=== PATIENT | female | born 1945 | race Caucasian/White ===

== ENCOUNTER 2016-11-12 17:48 | Inpatient (IN) | payer MEDICARE ==
[2016-11-12] MEDS ORDERED: ceFAZolin 1,000 MG in DEXTROSE/WATER 1 50ML.BAG IVPB STA (18:33)
[2016-11-12] MEDS ORDERED: SODIUM CHLORIDE 0.9% 1,000 ML IV ONE (18:35)
[2016-11-12 18:57] VITALS: RESP 16
[2016-11-12 19:08] LABS: Basophils # (A) 0.1 k/uL (0-0.2); Basophils % (A) 1 %; CH 29.6; CHCM 35.1; Eosinophils # (A) 0.2 k/uL (0-0.7); Eosinophils % (A) 3 %; HCT 36.8 % (34.0-46.0); HDW 3.13; HGB 13.4 gm/dL (11.4-16.0); Luc # (Auto) 0.26; Luc % (Auto) 4; Lymphocytes % (A) 27 %; MCH 30.8 pg (25.0-35.0); MCHC 36.4 g/dL (31.0-37.0); MCV 84.8 fL (80.0-100.0); Mean Platelet Volume 6.8; Monocytes # (A) 0.5 k/uL (0-1.0); Monocytes % (A) 7 %; Neutrophils # (A) 4.4 k/uL (1.3-7.7); Neutrophils % (A) 59 %; RBC 4.34 m/uL (3.80-5.40); RDW 13.7 % (11.5-15.5); WBC 7.3 k/uL (3.8-10.6); WBC (Perox) 7.49
[2016-11-12 19:20] LABS: ALT 39 U/L (9-52); AST 26 U/L (14-36); Alkaline Phosphatase 61 U/L (38-126); Anion Gap 14 mmol/L; Blood Urea Nitrogen 21 mg/dL (7-17); Calcium 10.1 mg/dL (8.4-10.2); Carbon Dioxide 28 mmol/L (22-30); Chloride 99 mmol/L (98-107); Glucose 116 mg/dL (74-99); Non-African American GFR(MDRD) >60 (>60 ml/min/1.73 sqM); Potassium 3.2 mmol/L (3.5-5.1); Sodium 141 mmol/L (137-145); Total Protein 7.7 g/dL (6.3-8.2)
[2016-11-12] MEDS ORDERED: KETOROLAC 30 MG/ML 1 ML VIAL IVP PRN (20:33)
[2016-11-12] MEDS ORDERED: ALPRAZolam 0.25 MG TAB PO PRN (20:33)
[2016-11-12] MEDS ORDERED: oxyCODONE-APAP 5-325MG 1 EACH TAB PO PRN (20:33)
[2016-11-12] MEDS ORDERED: NALOXONE 0.4 MG/ML 1 ML VIAL IV PRN (20:33)
[2016-11-12] MEDS ORDERED: ACETAMINOPHEN TAB 325 MG TAB PO PRN (20:33)
[2016-11-12] MEDS ORDERED: ONDANSETRON 4 MG/2 ML VIAL IVP PRN (20:33)
--- NOTE | 2016-11-12 20:33 | ED ---
Skin/Abscess/FB HPI - General Source: patient, RN notes reviewed, old records reviewed Mode of arrival: ambulatory Limitations: no limitations <Betty Hayes - Last Filed: 11/12/16 20:27> <Garrett Samuel - Last Filed: 11/12/16 20:54> - General Chief complaint: Skin/Abscess/Foreign Body Stated complaint: leg infection Time Seen by Provider: 11/12/16 18:16 - History of Present Illness Initial comments: This is a pleasant 71-year-old female presenting to the emergency Department chief complaint of right foot mosquito bite infected. Patient is a retired emergency room nurse. Patient reports that she noticed that it was irritating over her sandals. Patient states that over the past day she's noticed some streaking going up her leg. She also has some swelling there. She also reports that he sprained her ankle a few days ago. She denies any difficulty with ambulating. Patient denies any fever or chills. Patient states that she has full range of motion. Sensation in her distal extremity. She denies any posterior calf tenderness or thigh tenderness. Patient states that she did take some oxygen amoxicillin she had left over from a dental prophylaxis yesterday into today. Patient denies any recent fever, chills, shortness of breath, chest pain, back pain, abdominal pain, nausea vomiting, numbness or tingling, dysuria or hematuria, constipation or diarrhea, headaches or visual changes, or any other current symptoms (Betty Hayes) - Related Data Home Medications Medication Instructions Recorded Confirmed Aspirin EC [Ecotrin Low Dose] 81 mg PO DAILY 05/21/15 11/12/16 Atenolol/Chlorthalidone 1 tab PO QAM 05/21/15 11/12/16 [Atenolol-Chlorthalidone 50-25] Zolpidem [Ambien] 5 mg PO HS PRN 05/21/15 11/12/16 Amoxicillin 500 mg PO ONCE 11/12/16 11/12/16 Allergies Allergy/AdvReac Type Severity Reaction Status Date / Time sood Allergy Anaphylaxis Verified 11/12/16 18:24 morphine Allergy Unknown Verified 11/12/16 18:24 Review of Systems ROS Other: All systems not noted in ROS Statement are negative. <Betty Hayes - Last Filed: 11/12/16 20:27> ROS Other: All systems not noted in ROS Statement are negative. <Garrett Samuel - Last Filed: 11/12/16 20:54> ROS Statement: Those systems with pertinent positive or pertinent negative responses have been documented in the HPI. Past Medical History Past Medical History: Hypertension, Osteoarthritis (OA) Additional Past Medical History / Comment(s): OCCASIONAL VERTIGO., BACK PAIN. History of Any Multi-Drug Resistant Organisms: None Reported Past Surgical History: Hysterectomy, Joint Replacement, Orthopedic Surgery, Tonsillectomy Additional Past Surgical History / Comment(s): RIGHT ROTATOR CUFF REPAIR. Left hip Past Anesthesia/Blood Transfusion Reactions: Motion Sickness Past Psychological History: No Psychological Hx Reported Smoking Status: Former smoker Past Alcohol Use History: Occasional Past Drug Use History: None Reported - Past Family History Mother Family Medical History: Coronary Artery Disease (CAD), Diabetes Mellitus, Hypertension, Myocardial Infarction ([place]) Additional Family Medical History / Comment(s): Mother of a [place] after her leg was amputated when she was 72 yrs old. Father Family Medical History: Cancer Additional Family Medical History / Comment(s): LUNG CA Brother(s) Family Medical History: Cancer Additional Family Medical History / Comment(s): MELANOMA <Betty Hayes - Last Filed: 11/12/16 20:27> General Exam Limitations: no limitations General appearance: alert, in no apparent distress Head exam: Present: atraumatic, normocephalic, normal inspection Eye exam: Present: normal appearance, PERRL, EOMI. Absent: scleral icterus, conjunctival injection, periorbital swelling ENT exam: Present: normal exam, normal oropharynx, mucous membranes moist Neck exam: Present: normal inspection. Absent: tenderness, meningismus, lymphadenopathy Respiratory exam: Present: normal lung sounds bilaterally. Absent: respiratory distress, wheezes, rales, rhonchi, stridor Cardiovascular Exam: Present: regular rate, normal rhythm, normal heart sounds. Absent: systolic murmur, diastolic murmur, rubs, gallop, clicks GI/Abdominal exam: Present: soft, normal bowel sounds. Absent: distended, tenderness, guarding, rebound, rigid Extremities exam: Present: normal inspection, full ROM, normal capillary refill. Absent: tenderness, pedal edema, joint swelling, calf tenderness, other (Patient is evidence of 2 mosquito bites over the dorsum of the right foot. There is evidence of some swelling in lymphangitic streaking extending up from the medial ankle at the medial upper leg into the upper thigh. This area was marked with pen. ) Back exam: Present: normal inspection Neurological exam: Present: alert, oriented X3, CN II-XII intact Psychiatric exam: Present: normal affect, normal mood Skin exam: Present: warm, dry, intact, normal color. Absent: rash <Betty Hayes - Last Filed: 11/12/16 20:27> <Garrett Samuel - Last Filed: 11/12/16 20:54> - General Exam Comments Initial Comments: Is a 71-year-old female. No acute distress. (Betty Hayes) Medical Decision Making - Lab Data Result diagrams: 11/12/16 18:50 11/12/16 18:50 <Betty Hayes - Last Filed: 11/12/16 20:27> - Lab Data Result diagrams: 11/12/16 18:50 11/12/16 18:50 <Garrett Samuel - Last Filed: 11/12/16 20:54> - Medical Decision Making This is a pleasant 71-year-old female presenting to the emergency Department chief complaint of right foot mosquito bite infected. Patient reports she is generally healthy and well otherwise. Patient is a retired emergency room nurse. Patient reports that she noticed that it was irritating over her sandals. Patient states that over the past day she's noticed some streaking going up her leg. She also has some swelling there. Patient did have a wound culture obtained. Blood cultures and IV fluids were started. Patient was started on Kefzol. Discussed the case with Dr. Samuel. Given the significant streaking all the way up the thigh, patient will be admitted and start her on IV antibiotic. (Betty Hayes) Patient reevaluated by myself, Dr. Samuel. Patient does have 2 lesions right dorsal foot with surrounding erythema. There is lymphangitic streaking to the mid thigh. Case discussed with Dr. Ochoa, who will admit for Dr. Cantor. Patient does not meet sepsis criteria at this time. (Garrett Samule) - Lab Data Lab Results 11/12/16 11/12/16 Range/Units 18:50 18:50 WBC 7.3 (3.8-10.6) k/uL RBC 4.34 (3.80-5.40) m/uL Hgb 13.4 (11.4-16.0) gm/dL Hct 36.8 (34.0-46.0) % MCV 84.8 (80.0-100.0) fL MCH 30.8 (25.0-35.0) pg MCHC 36.4 (31.0-37.0) g/dL RDW 13.7 (11.5-15.5) % Plt Count 220 (150-450) k/uL Neutrophils % 59 % Lymphocytes % 27 % Monocytes % 7 % Eosinophils % 3 % Basophils % 1 % Neutrophils # 4.4 (1.3-7.7) k/uL Lymphocytes # 2.0 (1.0-4.8) k/uL Monocytes # 0.5 (0-1.0) k/uL Eosinophils # 0.2 (0-0.7) k/uL Basophils # 0.1 (0-0.2) k/uL Sodium 141 (137-145) mmol/L Potassium 3.2 L (3.5-5.1) mmol/L Chloride 99 (98-107) mmol/L Carbon Dioxide 28 (22-30) mmol/L Anion Gap 14 mmol/L BUN 21 H (7-17) mg/dL Creatinine 0.81 (0.52-1.04) mg/dL Est GFR (MDRD) Af Amer >60 (>60 ml/min/1.73 sqM) Est GFR (MDRD) Non-Af >60 (>60 ml/min/1.73 sqM) Glucose 116 H (74-99) mg/dL Calcium 10.1 (8.4-10.2) mg/dL Total Bilirubin 1.0 (0.2-1.3) mg/dL AST 26 (14-36) U/L ALT 39 (9-52) U/L Alkaline Phosphatase 61 (38-126) U/L Total Protein 7.7 (6.3-8.2) g/dL Albumin 4.7 (3.5-5.0) g/dL Disposition Time of Disposition: 20:33 <Betty Hayes - Last Filed: 11/12/16 20:27> <Garrett Samuel - Last Filed: 06/30/17 20:54> Clinical Impression: Cellulitis of right foot, Acute lymphangitis Disposition: ADMITTED IP TO THIS HOSP Condition: Stable Referrals: Manuel Arriaza MD [Primary Care Provider] - 1-2 days
[2016-11-12 22:19] VITALS: PULSE 76
[2016-11-12 22:41] VITALS: BMI 28.8
[2016-11-13] MEDS: ceFAZolin 1,000 MG in DEXTROSE/WATER 1 50ML.BAG IVPB SCH ×2 (01:42→08:16)
[2016-11-13] MEDS: SODIUM CHLORIDE 0.9% 1,000 ML IV SCH ×2 (01:43→05:50)
[2016-11-13] MEDS ORDERED: ATENOLOL 50 MG TAB PO SCH (09:00)
[2016-11-13] MEDS ORDERED: CHLORTHALIDONE 25 MG TAB PO SCH (09:00)
[2016-11-13] MEDS ORDERED: NON-FORMULARY DRUG (Atenolol/Chlorthalidone [Atenolol-Chlorthalidone 50-25] 1 TAB) PO SCH (09:00)
[2016-11-13] MEDS ORDERED: ASPIRIN 81 MG CHEW PO SCH (09:00)
[2016-11-13] MEDS ORDERED: ENOXAPARIN 40 MG/0.4 ML SYRINGE SQ SCH (09:00)
[2016-11-13 09:12] VITALS: BP 132/66; TEMP 97.6
[2016-11-13] MEDS ORDERED: POTASSIUM CHLORIDE ER 20 MEQ TAB.ER PO STA (10:38)
--- NOTE | 2016-11-13 10:51 | P.DS ---
Providers Date of admission: 11/12/16 20:54 Attending physician: Jordy Ochoa Primary care physician: Manuel jayden [facility] Course: Physical history of present illness Patient Condition at Discharge: Stable Plan - Discharge Summary New Discharge Prescriptions: New Cephalexin [Keflex] 500 mg PO Q8HR #21 cap Discontinued Amoxicillin 500 mg PO ONCE No Action Atenolol/Chlorthalidone [Atenolol-Chlorthalidone 50-25] 1 tab PO QAM Zolpidem [Ambien] 5 mg PO HS PRN PRN Reason: Insomnia Aspirin EC [Ecotrin Low Dose] 81 mg PO DAILY Discharge Medication List Aspirin EC [Ecotrin Low Dose] 81 mg PO DAILY 05/21/15 [History] Atenolol/Chlorthalidone [Atenolol-Chlorthalidone 50-25] 1 tab PO QAM 05/21/15 [ History] Zolpidem [Ambien] 5 mg PO HS PRN 05/21/15 [History] Cephalexin [Keflex] 500 mg PO Q8HR #21 cap 11/13/16 [Rx] Follow up Appointment(s)/Referral(s): Manuel Arriaza MD [Primary Care Provider] - 3 Days (Patient to call Dr. Arriaza' s office Tuesday to schedule follow up appointment. The office is closed at time of discharge.) Patient Instructions/Handouts: Cephalexin (By mouth), Cellulitis (DC), Lymphangitis (DC) Discharge Disposition: HOME SELF-CARE
--- NOTE | 2016-11-13 11:01 | P.HPIM ---
History of Present Illness H&P Date: 11/13/16 This is a pleasant 71-year-old female presenting to the emergency Department chief complaint of right redness, burning sensation is started on patient had mosquito bite in the past which led to skin breakdown after rubbing her footing is a show leading to cellulitis. Patient took 4 doses of amoxicillin she had at home without any significant impr She denies any difficulty with ambulating. Patient denies any fever or chills. Patient states that she has full range of motion. Sensation in her distal extremity. She denies any posterior calf tenderness or thigh tenderness. Patient denies any recent fever, chills, shortness of breath, chest pain, back pain, abdominal pain, nausea vomiting, numbness or tingling, dysuria or hematuria, constipation or diarrhea, headaches or visual changes, or any other current symptoms Review of Systems REVIEW OF SYSTEMS: CONSTITUTIONAL: No fever, no malaise, no fatigue. HEENT: No recent visual problems or hearing problems. Denied any sore throat. CARDIOVASCULAR: No chest pain, orthopnea, PND, no palpitations, no syncope. PULMONARY: No shortness of breath, no cough, no hemoptysis. GASTROINTESTINAL: No diarrhea, no nausea, no vomiting, no abdominal pain. Normoactive bowel sounds. NEUROLOGICAL: No headaches, no weakness, no numbness. HEMATOLOGICAL: Denies any bleeding or petechiae. GENITOURINARY: Denies any burning micturition, frequency, or urgency. MUSCULOSKELETAL/RHEUMATOLOGICAL: Denies any joint pain, swelling, or any muscle pain. ENDOCRINE: Denies any polyuria or polydipsia. The rest of the 14-point review of systems is negative. Past Medical History Past Medical History: Hypertension, Osteoarthritis (OA) Additional Past Medical History / Comment(s): OCCASIONAL VERTIGO., BACK PAIN. History of Any Multi-Drug Resistant Organisms: None Reported Past Surgical History: Hysterectomy, Joint Replacement, Orthopedic Surgery, Tonsillectomy Additional Past Surgical History / Comment(s): RIGHT ROTATOR CUFF REPAIR. Left hip Past Anesthesia/Blood Transfusion Reactions: No Reported Reaction Past Psychological History: No Psychological Hx Reported Additional Psychological History / Comment(s): PT resides in her home. She recently had a nephew and his son move in upstairs in her home. She is independent. She has a cane and access to 2 walkers for use after surgery. She drives. Smoking Status: Former smoker Past Alcohol Use History: Occasional Past Drug Use History: None Reported - Past Family History Mother Family Medical History: Coronary Artery Disease (CAD), Diabetes Mellitus, Hypertension, Myocardial Infarction ([place]) Additional Family Medical History / Comment(s): Mother of a [place] after her leg was amputated when she was 71 yrs old. Father Family Medical History: Cancer Additional Family Medical History / Comment(s): LUNG CA Brother(s) Family Medical History: Cancer Additional Family Medical History / Comment(s): MELANOMA Medications and Allergies Home Medications Medication Instructions Recorded Confirmed Type Aspirin EC [Ecotrin Low Dose] 81 mg PO DAILY 05/21/15 11/12/16 History Atenolol/Chlorthalidone 1 tab PO QAM 05/21/15 11/12/16 History [Atenolol-Chlorthalidone 50-25] Zolpidem [Ambien] 5 mg PO HS PRN 05/21/15 11/12/16 History Allergies Allergy/AdvReac Type Severity Reaction Status Date / Time sood Allergy Anaphylaxis Verified 11/12/16 18:24 morphine Allergy Unknown Verified 11/12/16 18:24 Physical Exam Vitals: Vital Signs Temp Pulse Pulse Resp BP BP Pulse Ox 11/13/16 08:00 76 16 11/13/16 07:00 97.6 F 55 L 16 132/66 96 11/12/16 22:18 98.1 F 76 16 148/75 97 11/12/16 21:26 98.7 F 66 16 121/69 99 11/12/16 18:54 99.0 F 64 16 155/74 99 11/12/16 17:50 98.1 F 80 20 149/84 98 Intake and Output 11/12/16 11/13/16 11/13/16 22:59 06:59 14:59 Intake Total 400 Balance 400 Intake: Oral 400 Other: Voiding Method Toilet Toilet # Voids 1 1 Weight 76.204 kg PHYSICAL EXAMINATION: GENERAL: The patient is alert and oriented x3, not in any acute distress. Well developed, well nourished. HEENT: Pupils are round and equally reacting to light. EOMI. No scleral icterus. No conjunctival pallor. Normocephalic, atraumatic. No pharyngeal erythema. No thyromegaly. CARDIOVASCULAR: S1 and S2 present. No murmurs, rubs, or gallops. PULMONARY: Chest is clear to auscultation, no wheezing or crackles. ABDOMEN: Soft, nontender, nondistended, normoactive bowel sounds. No palpable organomegaly. MUSCULOSKELETAL: No joint swelling or deformity. EXTREMITIES: No cyanosis, clubbing, or patient has extensive edema of the right lower limb extending from right foot up to a few centimeters below the groin area with the lymphangitic streaking and lymphadenopathy.. NEUROLOGICAL: Gross neurological examination did not reveal any focal deficits. SKIN: No rashes. Results CBC & Chem 7: 11/12/16 18:50 11/12/16 18:50 Labs: Abnormal Lab Results - Last 24 Hours (Table) 11/12/16 Range/Units 18:50 Potassium 3.2 L (3.5-5.1) mmol/L BUN 21 H (7-17) mg/dL Glucose 116 H (74-99) mg/dL Microbiology - Last 24 Hours (Table) 11/12/16 19:05 Gram Stain - Preliminary Foot - Left Wound Culture - Preliminary Thrombosis Risk Factor Assmnt - Choose All That Apply Any of the Below Risk Factors Present?: No Each Risk Factor Represents 2 Points: Age 61-74 years Other congenital or acquired thrombophilia - If yes, enter type in comment: No Thrombosis Risk Factor Assessment Total Risk Factor Score: 2 Thrombosis Risk Factor Assessment Level: Low Risk Assessment and Plan Plan: Assessment and plan #1 Is let us of the right lower extremity: Significant improvement with ceftezolin and and probably streptococcal because of the lymphangitic streaking , patient will be discharged on Keflex for 7 days. #2 hypertension fairly controlled blood pressures: Patient will continue her home medications #3 osteoarthritis. Patient will be discharged today to follow up with Dr. Manuel fernández in about 3- 7 days.
== END 2016-11-13 13:00 | disposition home or self-care (01) | DRG 603 ==
LOC: EC 17:48 → 5MS5E 20:54
PROVIDERS: ADMIT Internal Medicine; ATTEND Internal Medicine
DX: L03.115 Cellulitis of right lower limb (principal); I10 Essential (primary) hypertension; M19.90 Unspecified osteoarthritis, unspecified site; M54.9 Dorsalgia, unspecified; Z91.018 Allergy to other foods; Z83.3 Family history of diabetes mellitus; Z87.891 Personal history of nicotine dependence; Z88.5 Allergy status to narcotic agent; Z82.49 Family history of ischemic heart disease and other diseases of the circulatory system; Z80.1 Family history of malignant neoplasm of trachea, bronchus and lung; Z80.8 Family history of malignant neoplasm of other organs or systems; Z96.60 Presence of unspecified orthopedic joint implant; Z90.710 Acquired absence of both cervix and uterus; Z79.82 Long term (current) use of aspirin; Z79.899 Other long term (current) drug therapy; W57.XXXA Bitten or stung by nonvenomous insect and other nonvenomous arthropods, initial encounter
CPT/HCPCS: 36415; 80053; 85025; 87040; 87070; 87077; 87186; 87205; 96361; 96374; 99285

== ENCOUNTER → 2017-03-23 | Outpatient (CLI) | payer MEDICARE ==
--- NOTE | 2017-03-25 10:44 | MM ---
Reason for exam: screening (asymptomatic). Last mammogram was performed 1 year ago. History: Patient is postmenopausal and is nulliparous. Family history of breast cancer in paternal grandmother at age 60. Benign right mammotome panel of the right breast, April 15, 2010. Benign left mammotome panel of the left breast, January 09, 2007. Benign left mammotome panel of the left breast, January 09, 2007. Took estrogen for 9 years beginning at age 48. Physical Findings: A clinical breast exam by your physician is recommended on an annual basis and results should be correlated with mammographic findings. MG 3D Screening Mammo W/Cad Bilateral CC and MLO view(s) were taken. Prior study comparison: March 22, 2016, bilateral MG 3d screening mammo w/cad. March 21, 2015, bilateral MG screening mammo w CAD. The breast tissue is heterogeneously dense. This may lower the sensitivity of mammography. Previous mammotome biopsy in the right breast in the left breast x 2. No significant changes when compared with prior studies. ASSESSMENT: Negative, BI-RAD 1 RECOMMENDATION: Routine screening mammogram of both breasts in 1 year.
== END | disposition home or self-care (01) ==
LOC: RADMAMWWP 09:52
PROVIDERS: ATTEND Internal Medicine
DX: Z12.31 Encounter for screening mammogram for malignant neoplasm of breast (principal)
CPT/HCPCS: 77063; G0202

== ENCOUNTER → 2018-04-05 | Outpatient (CLI) | payer MEDICARE ==
--- NOTE | 2018-04-10 11:57 | MM ---
Reason for exam: screening (asymptomatic). Last mammogram was performed 1 year ago. History: Patient is postmenopausal and is nulliparous. Family history of breast cancer in paternal grandmother at age 60. Benign right mammotome panel of the right breast, April 15, 2010. Benign left mammotome panel of the left breast, January 09, 2007. Benign left mammotome panel of the left breast, January 09, 2007. Took estrogen for 9 years beginning at age 48. Physical Findings: A clinical breast exam by your physician is recommended on an annual basis and results should be correlated with mammographic findings. MG 3D Screening Mammo W/Cad Bilateral CC and MLO view(s) were taken. Prior study comparison: March 23, 2017, bilateral MG 3d screening mammo w/cad. March 22, 2016, bilateral MG 3d screening mammo w/cad. The breast tissue is heterogeneously dense. This may lower the sensitivity of mammography. Previous mammotome biopsy in the right and left breast. No significant changes when compared with prior studies. ASSESSMENT: Benign, BI-RAD 2 RECOMMENDATION: Routine screening mammogram of both breasts in 1 year.
== END | disposition home or self-care (01) ==
LOC: RADMAMWWP 08:57
PROVIDERS: ATTEND Internal Medicine
DX: Z12.31 Encounter for screening mammogram for malignant neoplasm of breast (principal)
CPT/HCPCS: 77063; 77067

== ENCOUNTER 2018-07-04 06:13 | Day surgery (SDC) | payer MEDICARE ==
[2018-06-29 15:52] VITALS: BMI 28.8
[~2018-07-04 06:13] MED LIST: HYDROmorphone 0.5 MG/0.5 ML SYRINGE IVP PRN; LACTATED RINGERS 1,000 ML IV SCH; LIDOCAINE 1% 20 ML VIAL (10MG/ML) FOR IV START INTRADERMA PRN
[2018-07-04] MEDS: CYCLOPENTOLATE 1% OPHTH SOLN 2 ML BTL OP ONE ×3 (06:40→07:04)
[2018-07-04 06:43] VITALS: RESP 16; TEMP 97
[2018-07-04] MEDS: PHENYLEPHRINE 10% OPHTH DROPS 5 ML BTL OP ONE ×3 (06:48→07:07)
[2018-07-04] MEDS: KETOROLAC 0.5% OPHTH DROPS 5 ML BTL OP ONE ×3 (06:51→07:14)
[2018-07-04] MEDS ORDERED: GENTAMICIN/PREDNISOL AC OPHTH OINT 3.5GM OPHTHALMIC ONE (07:00)
[2018-07-04] MEDS ORDERED: TOBRA-DEXAMET 0.3-0.1% OPHTH OINT 3.5 GM TUBE OPHTHALMIC ONE (07:00)
[2018-07-04] MEDS ORDERED: TIMOLOL 0.5% OPHTH DROPS 5 ML BTL OP ONE (07:00)
[2018-07-04] MEDS ORDERED: BUPIVACAINE (PF) 0.75% 5 ML, HYALURONIDASE, HUMAN RECOMB 150 UNIT, LIDOCAINE 2% (PF) 10... MISCELLANE ONE ×3 (07:00)
[2018-07-04] MEDS ORDERED: fentaNYL (PF) 50 MCG/ML 2 ML AMP ONE (07:40)
[2018-07-04] MEDS ORDERED: PROPOFOL 10 MG/ML 20 ML VIAL IV ONE (07:40)
[2018-07-04] MEDS ORDERED: MIDAZOLAM 2 MG/2 ML VIAL ONE (07:40)
[2018-07-04] MEDS ORDERED: HYALURONATE SODIUM INTRAOCULAR 1 EACH SYRINGE (10MG/ML) INTRAOCULA ONE (07:47)
[2018-07-04] MEDS ORDERED: BALANCED SALT IRRIG SOLN COMB2 15 ML IRRIG.SOLN IRRIGATION ONE (07:47)
[2018-07-04] MEDS ORDERED: EPINEPHrine (PF) 0.5 ML in BALANCED SALT IRRIG SOLN COMB2 500 ML IRRIGATION ONE (07:50)
--- NOTE | 2018-07-04 08:27 | P.OP ---
Date of Procedure: 07/04/18 Procedure(s) Performed: PREOPERATIVE DIAGNOSIS: Cataract, right eye. POSTOPERATIVE DIAGNOSIS: Cataract, right eye. OPERATION: Phacoemulsification of cataract, intraocular lens placement, right eye. DESCRIPTION OF PROCEDURE: The patient was taken to the operating room. Intravenous Propofol was given so as to bring about sedation. The following mixture was given for local anesthesia: 5 mL of 2% lidocaine, 5 mL of 0.75% Marcaine, and 1 mL of Wydase. Approximately 4 mL was injected in the retrobulbar space of the surgical eye. Additional 1 mL was then directed to the temporal area of the surgical eye. This was performed to allow adequate neurological block of the facial muscles. The patient was revived. The patient was prepped and draped in the usual sterile manner for the operative eye. A lid speculum was put into position. The conjunctiva was resected back from the limbus in the 12 o'clock position. Bleeding was controlled with electrocautery. A #69 blade was then used and a half-thickness scleral incision approximately 1-mm posterior to the limbus was made on bare sclera. This was shelved in the clear cornea using a crescent knife. Next a 15-degree blade was used to make a stab incision at the 3 o'clock position at the corneolimbal interface. A keratome blade was then used and the superior wound was extended into the anterior chamber. Viscoelastic was injected into the anterior chamber to maintain its form. A cystotome was used and a continuous anterior capsulotomy was made. Hydrodissection of the lens cortex using a blunt cannula and BSS was performed. A phaco probe was then introduced and a groove extending from 12 to 6 o'clock in the lens was created. A Mike wand was used through the stab incision and used to perform a divide and conquer dismantling of the cataract. An irrigation aspiration probe was utilized and any residual cortex was removed from the eye. Again, viscoelastic was injected into the anterior chamber. An Constantino posterior chamber lens implant was placed in a delivery cartridge and injected into the anterior chamber. A Sinskey hook was utilized to spin the lens into position within the capsular bag. The irrigation and aspiration probe was again introduced and any residual viscoelastic was removed from the eye. BSS was injected via blunt canula into the limbal stab incision and the anterior chamber was re-inflated. The conjunctiva was reapproximated using electrocautery. One drop of 0.25% Timoptic was placed over the corneal along with an antibiotic ophthalmic ointment. Two sterile patches and a Perez eye shield were taped into position. The patient was transported to the recovery room in stable condition. Pathology: none sent Condition: stable Disposition: same day
[2018-07-04 08:52] VITALS: BP 165/80; PULSE 57
== END 2018-07-04 09:03 | disposition home or self-care (01) ==
LOC: OR 06:13
PROVIDERS: ATTEND Ophthalmology
DX: H25.11 Age-related nuclear cataract, right eye (principal); I10 Essential (primary) hypertension; G47.00 Insomnia, unspecified; Z98.42 Cataract extraction status, left eye; Z96.1 Presence of intraocular lens; Z79.82 Long term (current) use of aspirin; Z82.49 Family history of ischemic heart disease and other diseases of the circulatory system; Z79.1 Long term (current) use of non-steroidal anti-inflammatories (NSAID); Z88.5 Allergy status to narcotic agent; Z79.899 Other long term (current) drug therapy
CPT/HCPCS: 66984; V2632; J2250; J0171; J3010; J2704

== ENCOUNTER → 2019-04-18 | Outpatient (CLI) | payer MEDICARE ==
--- NOTE | 2019-04-19 11:59 | MM ---
Reason for exam: screening (asymptomatic). Last mammogram was performed 1 year ago. History: Patient is postmenopausal and is nulliparous. Family history of breast cancer in paternal grandmother at age 60. Benign right mammotome panel of the right breast, April 15, 2010. Benign left mammotome panel of the left breast, January 09, 2007. Benign left mammotome panel of the left breast, January 09, 2007. Took estrogen for 9 years beginning at age 48. Physical Findings: A clinical breast exam by your physician is recommended on an annual basis and results should be correlated with mammographic findings. MG 3D Screening Mammo W/Cad Bilateral CC and MLO view(s) were taken. Prior study comparison: April 05, 2018, bilateral MG 3d screening mammo w/cad. March 23, 2017, bilateral MG 3d screening mammo w/cad. The breast tissue is heterogeneously dense. This may lower the sensitivity of mammography. Benign appearing bilateral calcifications. No suspicious abnormality. Bilateral biopsy markers noted. No significant changes when compared with prior studies. ASSESSMENT: Benign, BI-RAD 2 RECOMMENDATION: Routine screening mammogram of both breasts in 1 year.
== END | disposition home or self-care (01) ==
LOC: RADMAMWWP 09:27
PROVIDERS: ATTEND Internal Medicine
DX: Z12.31 Encounter for screening mammogram for malignant neoplasm of breast (principal)
CPT/HCPCS: 77063; 77067

== ENCOUNTER 2019-06-10 23:08 | Emergency (ER) | payer MEDICARE ==
[2019-06-10 23:14] VITALS: TEMP 96.9
--- NOTE | 2019-06-10 23:24 | ED ---
Fall HPI - General Stated Complaint: Fall Time Seen by Provider: 06/10/19 23:10 Source: patient Mode of arrival: EMS - History of Present Illness Initial Comments: Carole louis a pleasant previously healthy 74-year-old female is brought to the ER today via EMS for evaluation of right-sided shoulder pain and concern for dislocation after a mechanical trip and fall at home. Patient reports that she hadn't turn the lights on and was going down the stairs when she missed the last step falling landing on her right arm. Patient reports that she can feel that her arm is out of place. She denies hitting her head, she denies loss of consciousness she denies other injury. MD Complaint: fall -: hour(s) Fall From: standing When Fall Occurred: 1 hour VASCULAR RADIOLOGIST Fall Witnessed: no Place Fall Occurred: home Loss of Consciousness: none Prolonged Down Time?: no Symptoms Prior to Fall: none Location - Extremities: Right: Shoulder - Related Data Home Medications Medication Instructions Recorded Confirmed Aspirin EC [Ecotrin Low Dose] 81 mg PO DAILY 05/21/15 06/29/18 Atenolol/Chlorthalidone 1 tab PO QAM 05/21/15 06/29/18 [Atenolol-Chlorthalidone 50-25] Zolpidem [Ambien] 5 mg PO HS PRN 05/21/15 06/29/18 Ibuprofen 200 mg PO BID 06/29/18 06/29/18 Allergies Allergy/AdvReac Type Severity Reaction Status Date / Time sood Allergy Anaphylaxis Verified 07/04/18 06:33 morphine Allergy Itching Verified 07/04/18 06:33 Review of Systems ROS Statement: Those systems with pertinent positive or pertinent negative responses have been documented in the HPI. ROS Other: All systems not noted in ROS Statement are negative. Past Medical History Past Medical History: Eye Disorder, Hypertension, Osteoarthritis (OA) Additional Past Medical History / Comment(s): rt cataract,OCCASIONAL VERTIGO., BACK PAIN. History of Any Multi-Drug Resistant Organisms: None Reported Past Surgical History: Hysterectomy, Joint Replacement, Orthopedic Surgery, Tonsillectomy Additional Past Surgical History / Comment(s): RIGHT ROTATOR CUFF REPAIR. Total Left hip,left cataract Past Anesthesia/Blood Transfusion Reactions: No Reported Reaction Past Psychological History: No Psychological Hx Reported Smoking Status: Former smoker Past Alcohol Use History: Rare Past Drug Use History: None Reported - Past Family History Mother Family Medical History: Coronary Artery Disease (CAD), Diabetes Mellitus, Hypertension, Myocardial Infarction ([place]) Additional Family Medical History / Comment(s): Mother of a [place] after her leg was amputated when she was 72 yrs old. Father Family Medical History: Cancer Additional Family Medical History / Comment(s): LUNG CA Brother(s) Family Medical History: Cancer Additional Family Medical History / Comment(s): MELANOMA General Exam - General Exam Comments Initial Comments: Physical Exam GENERAL: Patient is well-developed and well-nourished. Patient is nontoxic and well- hydrated and is in no distress. HENT: Normocephalic, Atraumatic. EYES: PERRL, EOMI PULMONARY: Unlabored respirations. No audible rales rhonchi or wheezing was noted. CARDIOVASCULAR: There is a regular rate and rhythm without any murmurs gallops or rubs. ABDOMEN: Soft and nontender with normal bowel sounds. SKIN: Skin is clear with no lesions or rashes and otherwise unremarkable. : Deferred NEUROLOGIC: Patient is alert and oriented x3. Moving all extremities spontaneously MUSCULOSKELETAL: Obvious deformity of the right shoulder, normal range of motion of the elbow wrist hand and fingers Arm is neurovascularly intact distal to the injury, strong radial and ulnar pulses PSYCHIATRIC: Normal psychiatric evaluation. Limitations: no limitations Course Vital Signs 06/10/19 06/11/19 06/11/19 23:09 00:39 00:46 Temperature 96.9 F L Pulse Rate 56 L 64 63 Respiratory 18 18 19 Rate Blood Pressure 183/89 190/92 159/95 O2 Sat by Pulse 95 100 97 Oximetry 06/11/19 06/11/19 06/11/19 00:51 00:56 01:01 Temperature Pulse Rate 58 L 58 L 61 Respiratory 20 18 20 Rate Blood Pressure 187/95 163/83 114/70 O2 Sat by Pulse 99 97 96 Oximetry 06/11/19 06/11/19 06/11/19 01:06 01:11 01:16 Temperature Pulse Rate 62 60 65 Respiratory 20 18 16 Rate Blood Pressure 120/65 132/72 138/87 O2 Sat by Pulse 97 97 98 Oximetry 06/11/19 06/11/19 06/11/19 01:36 01:50 02:05 Temperature Pulse Rate 65 57 L 67 Respiratory 18 17 18 Rate Blood Pressure 150/85 168/84 163/89 O2 Sat by Pulse 100 99 98 Oximetry Procedures - Orthopedic Joint Reduction Joint #1 Consent Obtained: verbal consent, written consent Side: right Joint Reduction Location: shoulder Analgesia: procedural sedation Shoulder Technique Used (if applicable): traction/counter-traction, external rotation Post-Reduction Neuro Exam: intact Post-Reduction Vascular Exam: intact Post Reduction X-Ray Obtained: Yes Post Reduction X-Ray Results: reduced Splint Applied: Yes Patient Tolerated Procedure: well, no complications - Procedural Sedation Procedural Sedation Start Time: 00:44 Indications: fracture/dislocation reduction ASA Class: II Mallampati Airway Score: 2 Preparation: traffic monitor specialist applied, pulse oximeter, capnometry used, supplemental O2 applied, reversal agents at bedside, suction/airway equipment at bedside, IV secured IV Propofol Dose (mgs): 200 Complications: none Interventions: oxygen applied Patient Tolerated Procedure: well Additional Comments: Initial dose of propofol 100mg, patient well sedated however reduction was not successful and repeat dose of 100mg was given Medical Decision Making - Medical Decision Making Patient was seen and evaluated, history was obtained from the patient History and physical exam concerning for right shoulder dislocation or possible fracture x-ray confirmed an anterior dislocation with fracture Patient was consented for procedural sedation for reduction, patient is aware that she does have a chip fracture there is possibility of worsening fracture with attempted reduction. Patient aware that she may requires surgical repair Initial dose of 100 mg of propofol was given, attempt at reduction was made however was unsuccessful. A repeat dose of propofol 100 mg was given and reduction was successful. Patient tolerated procedure well. Patient's right upper extremity placed in a sling Patient was tolerating by mouth intake post sedation. Comfortable plan for discharge home and [facility] who she has had surgery before. Disposition Clinical Impression: Fall, Anterior dislocation of right shoulder, Fracture of humeral head, closed Disposition: HOME SELF-CARE Condition: Stable Instructions (If sedation given, give patient instructions): Shoulder Dislocation (ED), Moderate Sedation (ED), Proximal Humerus Fracture (ED) Additional Instructions: Keep your arm in the sling Follow up with [facility] for further recommendation regarding possible need for surgery Is patient prescribed a controlled substance at d/c from ED?: No Referrals: Manuel Arriaza MD [Primary Care Provider] - 1-2 days [facility] [Provider Group] - 1-2 days
[2019-06-10] MEDS ORDERED: PROPOFOL 10 MG/ML 20 ML VIAL IV STA (23:35)
[2019-06-10] MEDS ORDERED: SODIUM CHLORIDE 0.9% 1,000 ML IV STA (23:35)
--- NOTE | 2019-06-10 23:44 | XR ---
EXAMINATION TYPE: XR shoulder limited RT DATE OF EXAM: 06/10/2019 COMPARISON: NONE HISTORY: Fall. Pain. TECHNIQUE: 2 views FINDINGS: There is anterior dislocation of the humeral head. There is large comminuted chip fracture of the greater tuberosity of the humerus. Scapula appears intact. IMPRESSION: Anterior fracture dislocation of the shoulder joint with large chip fracture of the great er tuberosity of the humerus.
--- NOTE | 2019-06-11 01:06 | XR ---
EXAMINATION TYPE: XR shoulder limited RT DATE OF EXAM: 06/11/2019 COMPARISON: Today HISTORY: Post reduction TECHNIQUE: Single view FINDINGS: There is persistent anterior dislocation of the humeral head. There is large comminuted chi p fracture of the greater tuberosity. IMPRESSION: No change compared to initial exam. Persistent dislocation.
--- NOTE | 2019-06-11 01:10 | XR ---
EXAMINATION TYPE: XR shoulder limited RT DATE OF EXAM: 06/11/2019 COMPARISON: Today HISTORY: Post reduction TECHNIQUE: Single view FINDINGS: There is anatomic reduction of the glenohumeral joint. There is chip fracture of the greate r tuberosity of the humerus without significant displacement. IMPRESSION: Satisfactory reduction.
[2019-06-11 02:15] VITALS: BP 163/89; PULSE 67; RESP 18
== END 2019-06-11 02:37 | disposition home or self-care (01) ==
LOC: EC 23:08
DX: S43.014A Anterior dislocation of right humerus, initial encounter (principal); I10 Essential (primary) hypertension; M19.90 Unspecified osteoarthritis, unspecified site; Z79.1 Long term (current) use of non-steroidal anti-inflammatories (NSAID); Z79.82 Long term (current) use of aspirin; Z79.899 Other long term (current) drug therapy; Z88.5 Allergy status to narcotic agent; Z91.018 Allergy to other foods; Z96.642 Presence of left artificial hip joint; Z87.891 Personal history of nicotine dependence; W10.9XXA Fall (on) (from) unspecified stairs and steps, initial encounter; Y92.009 Unspecified place in unspecified non-institutional (private) residence as the place of occurrence of the external cause
CPT/HCPCS: 73020 ×2; 99283; 96360; 99152; 99153 ×2; 23650; J2704

== ENCOUNTER → 2019-07-31 | Outpatient (CLI) | payer MEDICARE ==
--- NOTE | 2019-07-31 09:51 | BD ---
EXAMINATION TYPE: Axial Bone Density DATE OF EXAM: 07/31/2019 COMPARISON: Prior DEXA bone scan February 26, 2013. CLINICAL HISTORY: OSTEOPENIA postmenopausal female. Height: 5 FT 4 IN Weight: 171 FRAX RISK QUESTIONS: Alcohol (3 or more units per day): NO Family History (Parent hip fracture): NO Glucocorticoids (More than 3mos): NO (Ex: prednisone, prednisolone, methylprednisolone, dexamethasone, and hydrocortisone). History of Fracture in Adulthood: YES Secondary Osteoporosis: 1. Type 1 Diabetes: NO 2. Hyperthyroidism: NO 3. Menopause before 45: NO 4. Malnutrition: NO 5. Chronic liver disease: NO Rheumatoid Arthritis: NO Current Tobacco Use: NO RISK FACTORS HISTORY OF: Surgery to Spine/Hip(right/left)/Wrist (right/left): LEFT HIP REPLACEMENT When: 2018 Active: YES Postmenopausal woman: PART HYST AGE 44 Take estrogen and/or progesterone medications: TOOK HRT FOR APPRX 10 YEARS ABOUT 30 YEARS AGO MEDICATIONS: Additional Medications: ATENOLOL, VIT D, AMBIEN, VALIUM Additional History: RECENT SHOULDER FX 05/2019 EXAM MEASUREMENTS: Bone mineral densitometry was performed using the [employer] System. Bone mineral density as measured about the Lumbar spine is: ----- L1-L4(G/cm2): 1.234 T Score Values are as follows: ----- L2: -0.7 ----- L3: 0.5 ----- L4: 1.2 ----- L1-L4: 0.5 Bone mineral density has: INCREASED 5.2 % since study of: 2012 Bone mineral density about the R hip (g/cm2): 0.859 T Score values are as follows: -----R Neck: -1.3 -----R Total: -0.9 Bone mineral density has: INCREASED 0.6 % since study of: 2012 IMPRESSION: Osteopenia (T Score between -2.5 and -1) at femoral neck level in the right hip. There remains slightly increased risk of fracture and the patient may be considered for treatment. Re-Screen 2-5 years. NOTE: T-SCORE=SD OF THE YOUNG ADULT MEAN.
== END | disposition home or self-care (01) ==
LOC: RADBDWWP 08:16
PROVIDERS: ATTEND Internal Medicine
DX: M85.88 Other specified disorders of bone density and structure, other site (principal)
CPT/HCPCS: 77080

== ENCOUNTER → 2020-05-02 | Outpatient (CLI) | payer MEDICARE ==
--- NOTE | 2020-05-06 11:37 | MM ---
Reason for exam: screening (asymptomatic). Last mammogram was performed 1 year ago. History: Patient is postmenopausal and is nulliparous. Family history of breast cancer in paternal grandmother at age 60. Benign right mammotome panel of the right breast, April 15, 2010. Benign left mammotome panel of the left breast, January 09, 2007. Benign left mammotome panel of the left breast, January 09, 2007. Took estrogen for 9 years beginning at age 48. Physical Findings: A clinical breast exam by your physician is recommended on an annual basis and results should be correlated with mammographic findings. MG 3D Screening Mammo W/Cad Bilateral CC and MLO view(s) were taken. Prior study comparison: April 18, 2019, bilateral MG 3d screening mammo w/cad. April 05, 2018, bilateral MG 3d screening mammo w/cad. The breast tissue is heterogeneously dense. This may lower the sensitivity of mammography. Previous mammotome biopsy in the left breast. Benign bilateral oil cyst calcifications. Increasing grouped calcifications left posterior upper outer quadrant. Magnification views recommended to assess morphology. ASSESSMENT: Incomplete: need additional imaging evaluation, BI-RAD 0 RECOMMENDATION: Special view mammogram of the left breast. (magnification) If lesion persists on supplemental views, image directed ultrasound is recommended. [facility] will attempt to contact patient to return for supplemental views and ultrasound if indicated.
== END | disposition home or self-care (01) ==
LOC: RADMAMWWP 14:57
PROVIDERS: ATTEND Family Medicine
DX: Z12.31 Encounter for screening mammogram for malignant neoplasm of breast (principal)
CPT/HCPCS: 77063; 77067

== ENCOUNTER → 2020-05-13 | Outpatient (CLI) | payer MEDICARE ==
--- NOTE | 2020-05-13 10:23 | MM ---
Reason for exam: additional evaluation requested from abnormal screening. Last mammogram was performed less than 1 month ago. History: Patient is postmenopausal and is nulliparous. Family history of breast cancer in paternal grandmother at age 60. Benign right mammotome panel of the right breast, April 15, 2010. Benign left mammotome panel of the left breast, January 09, 2007. Benign left mammotome panel of the left breast, January 09, 2007. Took estrogen for 9 years beginning at age 48. Physical Findings: Nurse did not find any significant physical abnormalities on exam. MG 3D Work Up W/Cad LT CC with magnification, LM with magnification, and LM view(s) were taken of the left breast. Prior study comparison: May 02, 2020, bilateral MG 3d screening mammo w/cad. April 18, 2019, bilateral MG 3d screening mammo w/cad. April 05, 2018, bilateral MG 3d screening mammo w/cad. The breast tissue is heterogeneously dense. This may lower the sensitivity of mammography. Finding: There are developing fine, grouped/clustered calcifications in the upper outer quadrant of the left breast. New finding since May 02, 2020, April 18, 2019, and April 05, 2018. These results were verbally communicated with the patient and result sheet given to the patient on 05/13/20. ASSESSMENT: Suspicious, BI-RAD 4 RECOMMENDATION: Stereotactic core biopsy of the left breast. (left breast upper outer quadrant calcifications) Called Dr. Martin's office with mammographic findings and has scheduled an appointment for the patient for 06/11/20 at 4:[address] Sheets. Biopsy scheduled for 05/26/20 at 8:00. PRELIMINARY REPORT CALLED AND FAXED TO DR. SHEETS ON 05/13/20.
== END | disposition home or self-care (01) ==
LOC: RADMAMWWP 08:41
PROVIDERS: ATTEND Family Medicine
DX: R92.8 Other abnormal and inconclusive findings on diagnostic imaging of breast (principal)
CPT/HCPCS: 77065; G0279; 77061

== ENCOUNTER → 2020-05-26 | Day surgery (SDC) | payer MEDICARE ==
[2020-05-26 07:23] VITALS: RESP 16
[2020-05-26 08:43] VITALS: BP 152/82; PULSE 64; TEMP 98.1
--- NOTE | 2020-05-26 09:30 | MM ---
EXAMINATION TYPE: MG stereo VAD BX LT DATE OF EXAM: 05/26/2020 COMPARISON: 05/02/2020 and 05/13/2020 CLINICAL HISTORY: 75 year-old for detected biopsy of left breast microcalcifications. TECHNIQUE: Stereotactic guided core biopsy of 2:00 position posterior depth left breast microcalcifications. FINDINGS: The procedure of stereotactic guided core biopsy was explained to the patient. Benefits, alternatives, and risks were discussed. An informed consent was then obtained. The [facility] pathway for biopsy was chosen. [facility] pathway was a lateral approach. I performed the localization, followed by the remainder of the procedure. A vacuum assisted biopsy gun was used to obtain 8 core samples. The patient tolerated the procedure well without any immediate complication. The patient was kept in the radiology department for short stay after the procedure and then discharged home in stable condition. Targeted calcifications are identified in specimen mammogram. Post biopsy mammogram shows the clip in place. There has been minimal 5 mm of medial clip migration. All of the targeted calcifications have been removed. IMPRESSION: SUCCESSFUL, UNCOMPLICATED STEREOTACTIC GUIDED CORE BIOPSY OF POSTERIORLY LOCATED 2:00 LEFT BREAST MICROCALCIFICATIONS. MINIMAL 5 MM OF MEDIAL CLIP MIGRATION. FULL PATHOLOGY RESULTS TO FOLLOW. Pathology Results: Benign LEFT BREAST, STEREOTACTIC CORE BIOPSY: Fibroadenomatoid hyperplasia with calcifications in a background of fibrocystic changes. Recommendation Follow up mammogram of the left breast in 6 months. AYDE
== END ==
LOC: RADMAMWWP 07:01
PROVIDERS: ATTEND Surgery
DX: N60.82 Other benign mammary dysplasias of left breast (principal); N60.12 Diffuse cystic mastopathy of left breast
CPT/HCPCS: 88305; 19081; A4648; J2001

== ENCOUNTER → 2020-08-13 | Outpatient (CLI) | payer MEDICARE ==
--- NOTE | 2020-08-14 08:18 | US ---
EXAMINATION TYPE: US carotid duplex BILAT DATE OF EXAM: 08/13/2020 COMPARISON: NONE CLINICAL HISTORY: I10 Hypertension R42 dizziness/giddiness. EXAM MEASUREMENTS: RIGHT: Peak Systolic Velocity (PSV) cm/sec ----- Right CCA: 66.0 ----- Right ICA: 122.4 ----- Right ECA: 84.9 ICA/CCA ratio: 1.9 RIGHT: End Diastole cm/sec ----- Right CCA: 17.1 ----- Right ICA: 38.3 ----- Right ECA: 0.0 LEFT: Peak Systolic Velocity (PSV) cm/sec ----- Left CCA: 66.0 ----- Left ICA: 80.8 ----- Left ECA: 80.8 ICA/CCA ratio: 1.2 LEFT: End Diastole cm/sec ----- Left CCA: 17.1 ----- Left ICA: 28.4 ----- Left ECA: 0.0 VERTEBRALS (direction of flow): Right Vertebral: Antegrade Left Vertebral: Antegrade Rhythm: Normal Soft plaque noted right bulb/ICA with mildly elevated velocities as compared to CCA. Shadowing plaque noted left bulb. IMPRESSION: 1. Atheromatous plaquing and intimal thickening greater on the right. This is approaching 50% narrowi ng at the internal carotid artery. Criteria for Assigning % of Stenosis / Diameter reduction (Estimation based on the indirect measurements of the internal carotid artery velocities (ICA PSV). 1. Normal (no stenosis)=ICA PSV < 125 cm/s: ratio < 2.0: ICA EDV<40 cm/s. 2. Less than 50% stenosis=ICA PSV < 125 cm/s: ratio < 2.0: ICA EDV<40 cm/s. 3. 50 to 69% stenosis=ICA PSV of 125 to 230 cm/s: ration 2.0 ? 4.0: ICA EDV 40-100 cm/s. 4. Greater than 70% stenosis to near occlusion= ICA PSV > 230 cm/s: ratio > 4.0: ICA EDV > 100 cm/s. 5. Near occlusion= ICA PSV velocities may be low or undetectable: variable ratio and ICA EDV. 6. Total occlusion=unable to detect flow.
== END | disposition home or self-care (01) ==
LOC: RADUSWWP 16:05
PROVIDERS: ATTEND Family Medicine
DX: I65.21 Occlusion and stenosis of right carotid artery (principal)
CPT/HCPCS: 93880

== ENCOUNTER 2020-10-14 19:40 | Emergency (ER) | payer MEDICARE ==
[2020-10-14 20:16] VITALS: RESP 16
--- NOTE | 2020-10-14 20:58 | XR ---
EXAMINATION TYPE: XR toes RT DATE OF EXAM: 10/14/2020 COMPARISON: None HISTORY: Pain TECHNIQUE: Three-view right second digit FINDINGS: No acute fractures evident. Some mild diffuse joint space narrowing is present. Spurring is at the proximal interphalangeal joint space and distal interphalangeal joint space. Diffuse prominen t soft tissue swelling is present. IMPRESSION: 1. No acute osseous abnormality present. 2. Diffuse prominent soft tissue swelling through the second digit. 3. Consider less common arthritides such as rheumatoid arthritis and Eliza's.
--- NOTE | 2020-10-14 21:51 | ED ---
Lower Extremity Injury HPI - General Chief Complaint: Extremity Injury, Lower Stated Complaint: R foot toe injury Time Seen by Provider: 10/14/20 21:06 Source: patient Mode of arrival: ambulatory Limitations: no limitations - History of Present Illness Initial Comments: Patient is a 75-year-old female presenting to the emergency Department with complaints of swelling and redness to her right second toe for the past week. Patient states she saw her doctor one week ago, the day after it started, he started her on Keflex. Patient finished Keflex yesterday and went back today for reevaluation. Patient still had some swelling redness of the toes so her doctor ordered her Bactrim. She was supposed to start this today however she was concerned and came to the ER for further evaluation. She denies any injuries or trauma to the toe. She denies being diabetic. She denies any fevers or chills, no nausea or vomiting. She does feel like the redness is getting better. She was just concerned about how swollen it was. She recently had her uric acid checked, and this was normal. No hx of Gout. She does have history of arthritis. She denies any history of blood clots, no chest pain or shortness of breath. There are no further complaints. Upon arrival to the ER, vitals are stable. - Related Data Home Medications Medication Instructions Recorded Confirmed Zolpidem [Ambien] 5 mg PO HS PRN 05/21/15 05/26/20 Ibuprofen 200 mg PO BID 06/29/18 05/26/20 Aspirin 650 mg PO DAILY PRN 05/19/20 05/26/20 Allergies Allergy/AdvReac Type Severity Reaction Status Date / Time sood Allergy Anaphylaxis Verified 10/14/20 20:12 morphine Allergy Itching Verified 10/14/20 20:12 Review of Systems ROS Statement: Those systems with pertinent positive or pertinent negative responses have been documented in the HPI. ROS Other: All systems not noted in ROS Statement are negative. Past Medical History Past Medical History: Eye Disorder, Hypertension, Osteoarthritis (OA) Additional Past Medical History / Comment(s): rt cataract,OCCASIONAL VERTIGO., BACK PAIN. History of Any Multi-Drug Resistant Organisms: None Reported Past Surgical History: Hysterectomy, Joint Replacement, Orthopedic Surgery, Tonsillectomy Additional Past Surgical History / Comment(s): RIGHT ROTATOR CUFF REPAIR. Total Left hip,left cataract Past Anesthesia/Blood Transfusion Reactions: No Reported Reaction Past Psychological History: No Psychological Hx Reported Smoking Status: Never smoker Past Alcohol Use History: Occasional Past Drug Use History: None Reported - Past Family History Mother Family Medical History: Coronary Artery Disease (CAD), Diabetes Mellitus, Hypertension, Myocardial Infarction ([place]) Additional Family Medical History / Comment(s): Mother of a [place] after her leg was amputated when she was 72 yrs old. Father Family Medical History: Cancer Additional Family Medical History / Comment(s): LUNG CA Brother(s) Family Medical History: Cancer Additional Family Medical History / Comment(s): MELANOMA General Exam - General Exam Comments Initial Comments: GENERAL: Patient is well-developed and well-nourished. Patient is nontoxic and in no acute distress. HEAD: Atraumatic, normocephalic. EYES: Pupils equal round and reactive to light, extraocular movements intact, sclera anicteric, conjunctiva are normal. Eyelids were unremarkable. ENT: Nares patent, oropharynx clear without exudates. Moist mucous membranes. NECK: Normal range of motion, supple without lymphadenopathy or JVD. LUNGS: Unlabored respirations. Breath sounds clear to auscultation bilaterally and equal. No wheezes rales or rhonchi. HEART: Regular rate and rhythm without murmurs, rubs or gallops. ABDOMEN: Soft, nontender, normoactive bowel sounds. No guarding, no rebound. No masses appreciated. : Deferred MUSCULOSKELETAL: Patient's right second toe is slightly erythematous, swollen, painful to the touch. She does have full active range of motion. His neurovascular intact bilateral lower extremities. No clubbing or cyanosis. NEUROLOGICAL: Patient is alert and oriented x 3. Normal speech, normal gait. PSYCH: Normal mood, normal affect. SKIN: Warm, Dry, normal turgor, no rashes. Erythema and swelling noted to the right second toe as described above. Limitations: no limitations Course Vital Signs 10/14/20 20:12 Temperature 98.1 F Pulse Rate 81 Respiratory 16 Rate Blood Pressure 177/76 O2 Sat by Pulse 97 Oximetry Medical Decision Making - Medical Decision Making Patient is a 75-year-old female here for swelling and redness of her right second toe times one week. She just completed a course of Keflex, there was some mild improvement of her symptoms. She had a follow-up with her PCP today, he recommended starting Bactrim today. She has yet to start this. No fevers, vitals are stable, she is neurovascular intact. There is no erythema spreading on the right foot. I recommended she continue with the Bactrim as prescribed. I also recommended falling up with her PCP in 2-3 days. Strict return parameter s were discussed with the patient she verbalized understanding. Patient stable for discharge and she is in agreement with this plan of care. Case discussed with Dr. Seaman. Disposition Clinical Impression: Cellulitis of second toe, right Disposition: HOME SELF-CARE Condition: Stable Instructions (If sedation given, give patient instructions): Cellulitis (ED) Additional Instructions: Please return to the Emergency Department if symptoms worsen or any other concerns. Recommend continuing with Bactrim as prescribed. Trial of ibuprofen to help with pain and swelling. Please follow up with your doctor in 2-3 days as discussed. Is patient prescribed a controlled substance at d/c from ED?: No Referrals: Mark Martin DO [Primary Care Provider] - 1-2 days Time of Disposition: 21:51
[2020-10-14 22:02] VITALS: BP 152/71; PULSE 77; TEMP 98
== END 2020-10-14 22:00 | disposition home or self-care (01) ==
LOC: EC 19:40
DX: L03.031 Cellulitis of right toe (principal); I10 Essential (primary) hypertension; M19.90 Unspecified osteoarthritis, unspecified site; Z79.82 Long term (current) use of aspirin
CPT/HCPCS: 99283

== ENCOUNTER → 2020-11-25 | Outpatient (CLI) | payer MEDICARE ==
--- NOTE | 2020-11-25 11:40 | MM ---
Reason for exam: follow-up at short interval from prior study. Last mammogram was performed 6 months ago. History: Patient is postmenopausal and is nulliparous. Family history of breast cancer in paternal grandmother at age 60. Benign MG stereo VAD BX LT of the left breast, May 26, 2020. Benign right mammotome panel of the right breast, April 15, 2010. Benign left mammotome panel of the left breast, January 09, 2007. Benign left mammotome panel of the left breast, January 09, 2007. Took estrogen for 9 years beginning at age 48. Physical Findings: Nurse did not find any significant physical abnormalities on exam. MG 3D Diag Mammo W/Cad LT CC and MLO view(s) were taken of the left breast. Prior study comparison: May 13, 2020, left breast MG 3d work up w/cad LT. May 02, 2020, bilateral MG 3d screening mammo w/cad. April 18, 2019, bilateral MG 3d screening mammo w/cad. April 05, 2018, bilateral MG 3d screening mammo w/cad. The breast tissue is heterogeneously dense. This may lower the sensitivity of mammography. Multiple clips. More prominent tissue in area of recent biopsy. Follow up at time patient is due for bilateral. These results were verbally communicated with the patient and result sheet given to the patient on 11/25/20. ASSESSMENT: Probably benign, BI-RAD 3 RECOMMENDATION: Follow-up diagnostic mammogram of both breasts in 5 months. Back on schedule for April 2021.
== END | disposition home or self-care (01) ==
LOC: RADMAMWWP 10:57
PROVIDERS: ATTEND Surgery
DX: R92.2 Inconclusive mammogram (principal); Z78.0 Asymptomatic menopausal state; Z80.3 Family history of malignant neoplasm of breast
CPT/HCPCS: 77065; G0279; 77061

== ENCOUNTER → 2021-06-24 | Outpatient (CLI) | payer MEDICARE ==
--- NOTE | 2021-06-24 11:50 | MR ---
EXAMINATION TYPE: MR cervical spine wo con DATE OF EXAM: 06/24/2021 COMPARISON: None HISTORY: Cervicalgia TECHNIQUE: Multiplanar, multisequence images of the cervical spine were acquired without contrast. C2-C3: No evidence for degenerative disc disease. No disc bulge/herniation or protrusion. No Canal stenosis. Foramina are patent bilaterally. C3-C4: There is some foraminal encroachment on the right due to uncovertebral joint hypertrophy. No e vident disc herniation or spinal stenosis. C4-C5: No evidence for degenerative disc disease. No disc bulge/herniation or protrusion. No Canal stenosis. Foramina are patent bilaterally. C5-C6: Posterior disc herniation is eccentric left posterior paracentral location causing anterolater al mass effect on the thecal sac contact with the cervical cord, extension towards the left neural fo ramen. There is resulting spinal stenosis. Correlate for left C6 radiculopathy. C6-C7: Left-sided foraminal encroachment is present due to uncovertebral joint hypertrophy, posterior extension endplate disc complex causes mild anterior mass effect on the thecal sac. No significant s sun stenosis. C7-T1: No evidence for degenerative disc disease. No disc bulge/herniation or protrusion. No Canal stenosis. Foramina are patent bilaterally. Cervical segments are intact. There is normal alignment. Cervical spinal cord is of normal signal. Craniovertebral junction relationships are within normal limits. Cervical vertebral bodies show pre served height. There is a slight spinal curvature, minimal anterolisthesis grade 1 C4-5. Spondylosis is present especially at C5-6 and C6-7, there is endplate discogenic marrow signal change. IMPRESSION: Disc herniation C5-6 as described, associated left-sided foraminal encroachment, multilevel degenerat nehemiah disc disease and foraminal encroachment as described
== END | disposition home or self-care (01) ==
LOC: RADMRIMAIN 09:34
PROVIDERS: ATTEND Physical Medicine & Rehabilitation
DX: M50.222 Other cervical disc displacement at C5-C6 level (principal); M50.322 Other cervical disc degeneration at C5-C6 level
CPT/HCPCS: 72141

== ENCOUNTER → 2021-07-15 | Outpatient (CLI) | payer MEDICARE ==
--- NOTE | 2021-07-15 10:21 | P.CON ---
Consult Note - . Consult date: 07/15/21 Assessment/Plan:: HISTORY OF PRESENT ILLNESS: 76 -year-old female as a referral from Dr. Gordon presents today with neck pain due to DDD, disc herniations, bilateral neuroforaminal stenoses, spinal stenosis, spondylosis, facet arthropathy and left C6 radiculopathy for evaluation. Patient states her neck pain is 10 out of 10 in intensity, dull, achy with radiation of sharp, burning, stabbing pain to her right shoulder, right elbow and right wrist. Also experiences accompanying weakness of the right upper extremity often carrying a coffee mug in her hand then transferring into her left so she doesn't drop it. Pain is provoked with overhead reaching, extension and lateral flexion of the neck. Relief with Motrin OTC, heat, home exercise regimen with bands, use of a soft c-collar, massage and rest. Past Medical History: Hypertension, Osteoarthritis (OA) Past Surgical History: Hysterectomy, L Hip Joint Replacement, R RCT Repair, Tonsillectomy Social History: Occassional ETOH use, Former Tobacco user, No illicit drug use. Lives with Nephew and uses a cane for ambulatory assistance. She drives. Family History: Mother- CAD, DM, HTN, VA/ at 72. Father- Lung CA. Brother- Melanoma All: See list Meds: See list REVIEW OF ORGAN SYSTEMS: CONSTITUTIONAL: No fevers or chills. No recent weight loss. HEENT: No visual acuity loss, eye pain, difficulties with hearing. No nosebleeds. No difficulty swallowing. RESPIRATORY: Denies any troubles with breathing or dyspnea on exertion. CARDIOVASCULAR: Denies any chest pain, palpitations, or recent heart attacks. GASTROINTESTINAL: Denies fatty food intolerance. Has change in bowel habits and gas bloat. GENITOURINARY: Denies any blood in urine. Has increased urinary frequency. NEUROLOGICAL: + numbness and tingling along the distal extremities. No seizure disorders or headaches. MUSCULOSKELETAL: + back pain SKIN: No skin cancer. No rash. PSYCHIATRIC: Denies current depression or suicidal thoughts. ENDOCRINE: Denies current thyroid disorders. Denies any blood sugar glucose intolerance. HEME/LYMPHATIC: Denies any lumps and bumps around the neck. History of deep venous thrombosis. ALLERGY/IMMUNOLOGY: No immunoglobulin therapy. No immune deficiencies. BREAST: Denies current breast lumps, pain or nipple discharge. Physical Examinations : Constitutional : Cooperative , not in acute distress . HEENT: Neck supple. No Lymphadenopathy. Normal thyroid size . Eyes no ptosis , no icterus, no photophobia . Hearing intact. Normal oropharynx. No Thrush. Respiratory : Chest clear to auscultations bilaterally. No wheezing. No rhonchi. Cardiovascular : Regular rate and rhythm , S1 / S2. No S3 . No S4. Gastrointestinal : Abdomen soft. No tenderness. Bowel sounds x 4. No organomegaly . Genitourinary : Deferred. Neurologic : Cranial nerve II to XII intact. No focal neurological deficits. Psychiatric : alert & oriented x 3. Matching mood & appropriate affect. Judgment & insight intact. Lymphatic No Lymphadenopathy. Musculoskeletal : Cervical Spine +crepitus with rotation Motor strength in the deltoid and biceps: Normal right side. Normal Left side Motor strength biceps and the wrist extensors: Normal right side . Normal left side Motor strength in the triceps muscle: Normal right side. Normal left side Deep tendon reflexes: Normal at the biceps. Normal at Brachioradialis. Normal at triceps Vertebral body tenderness over C6 Cervical facet loading test: positive bilaterally over C6-C7, greater over the L side with jump reflex Spurling test: positive bilaterally Neck distraction test: positive bilaterally Luis sign: positive bilaterally Lumbar spine Motor strength lower extremities ,thigh and legs 5/5 Right side , 5/5 Left side Deep tendon reflexes : Normal Knee Jerk. Normal Ankle Jerk Vertebral body tenderness over Lumbar facet Loading Test: positive Right / positive Left Range of motion of the lumbar spine Flexion 30 degrees, extension 10 degrees Straight Leg Raise test: Left/ Right positive at degree Susanna test: positive right / positive left. Severe tenderness over the Sacroiliac joint on the Right / Left sides Gaenslen test: positive bilaterally Seated flexion test: positive bilaterally. Imaging: MRI of the cervical spine reviewed Assessment/ Plan : Recommendation of intralaminar L JAMES of the C6-C7. May need a series of 2 to obtain optimal pain relief. Risks, benefits of procedure discussed and patient verbalized understanding. Denies anti- coagulant use. Denies medical history of diabetes mellitus. All questions answered. I have spent greater than 50 minutes on patient care today. Dr Kaplan was available by phone for the evaluation of this patient. The time was used to review the medical records including relevant urine studies and Prescription history (MAPs), review of the available imaging, evaluation and examination of the patient, coordination of care with the medical staff and if applicable referring physicians, as well as creation of the medical record PQRS Measure Charge Sheet PQRS Narrative: Smoking Status Former smoker Home Medications: Ambulatory Orders Zolpidem [Ambien] 5 mg PO HS PRN 05/21/15 Ibuprofen 200 mg PO BID 06/29/18 Aspirin 650 mg PO DAILY PRN 05/19/20
[2021-07-15 12:15] VITALS: BP 131/78; PULSE 59; RESP 18; TEMP 98.3
== END ==
LOC: PNWHC3 08:59
PROVIDERS: ATTEND Physician Assistant Medical
DX: M54.12 Radiculopathy, cervical region (principal); I10 Essential (primary) hypertension; M19.90 Unspecified osteoarthritis, unspecified site; Z87.891 Personal history of nicotine dependence; Z79.82 Long term (current) use of aspirin; Z91.018 Allergy to other foods; Z88.5 Allergy status to narcotic agent
CPT/HCPCS: 99211

== ENCOUNTER → 2021-08-25 | Day surgery (SDC) | payer MEDICARE ==
[2021-08-24 14:18] VITALS: BMI 29.2
[~2021-08-25] MED LIST changes: -HYDROmorphone 0.5 MG/0.5 ML SYRINGE IVP PRN; -LIDOCAINE 1% 20 ML VIAL (10MG/ML) FOR IV START INTRADERMA PRN
[2021-08-25 12:02] VITALS: BP 170/72; PULSE 67; RESP 16; TEMP 97
--- NOTE | 2021-08-25 12:21 | P.PCN ---
Date of Procedure: 08/25/21 Description of Procedure: The patient presented today for cervical epidural steroid injection secondary to cervical pain and left-sided cervical radiculopathy that began in April. She reports in April she took an oral dose of steroids and has not had pain ever since. She has no pain on today's visit. She continues to have some weakness in her medial 2 fingers of left hand. It does not radiate from her neck. At this point she agrees that we will hold off on performing the procedure. She will follow-up with us as needed moving forward. If the pain recurs she can follow up with us and schedule a cervical epidural steroid injection or trial another dose of oral steroids.
== END ==
LOC: ORPAIN 11:45
PROVIDERS: ATTEND Hospitalist
DX: M54.12 Radiculopathy, cervical region (principal)

== ENCOUNTER → 2021-09-10 | Outpatient (CLI) | payer MEDICARE ==
--- NOTE | 2021-09-10 14:24 | MM ---
Reason for exam: additional evaluation requested from prior study. Last mammogram was performed 9 months ago. History: Patient is postmenopausal and is nulliparous. Family history of breast cancer in paternal grandmother at age 60. Benign MG stereo VAD BX LT of the left breast, May 26, 2020. Benign right mammotome panel of the right breast, April 15, 2010. Benign left mammotome panel of the left breast, January 09, 2007. Benign left mammotome panel of the left breast, January 09, 2007. Took estrogen for 9 years beginning at age 48. Physical Findings: A clinical breast exam by your physician is recommended on an annual basis and results should be correlated with mammographic findings. MG 3D Diag Mammo W/Cad GARIMA Bilateral CC and MLO view(s) were taken. Prior study comparison: November 25, 2020, left breast MG 3d diag mammo w/cad LT. May 13, 2020, left breast MG 3d work up w/cad LT. The breast tissue is extremely dense which could obscure a lesion on mammography. There are benign appearing round, dystrophic calcifications bilaterally. Previous mammotome biopsy in the right and left breast. There is no discrete abnormality. Results were given to the patient verbally at the time of the exam. ASSESSMENT: Benign, BI-RAD 2 RECOMMENDATION: Routine screening mammogram of both breasts in 1 year.
== END | disposition home or self-care (01) ==
LOC: RADMAMWWP 13:43
PROVIDERS: ATTEND Family Medicine
DX: R92.1 Mammographic calcification found on diagnostic imaging of breast (principal); Z78.0 Asymptomatic menopausal state; Z80.3 Family history of malignant neoplasm of breast
CPT/HCPCS: 77066; G0279; 77062

== ENCOUNTER → 2022-09-13 | Outpatient (CLI) | payer MEDICARE ==
--- NOTE | 2022-09-14 19:08 | MM ---
Reason for Exam: Screening (asymptomatic). Last mammogram was performed 1 year(s) and 1 month(s) ago. Patient History: Menarche at age 13. Patient has no children. Hysterectomy at age 45. Postmenopausal. Estrogen for 9 years from age 48 until age 57. 05/26/2020, Benign Core Biopsy on the left side. 04/15/2010, Benign Core Biopsy on the right side. 01/09/2007, Benign Core Biopsy on the left side. 01/09/2007, Benign Core Biopsy on the left side. Paternal grandmother had breast cancer, age 60. Risk Values: Lynda 5 year model risk: 2.6%. NCI Lifetime model risk: 4.7%. Prior Study Comparison: 05/13/2020 Left Diagnostic Mammogram, [facility]. 11/25/2020 Left Diagnostic Mammogram, [facility]. 09/10/2021 Bilateral Diagnostic Mammogram, [facility]. Tissue Density: The breast tissue is heterogeneously dense. This may lower the sensitivity of mammography. Findings: Analyzed By CAD. Bilateral microclips from prior biopsies. Benign oil cyst and scattered round and coarse calcifications are present bilaterally. Additional grouped microcalcifications remain unchanged. There is no suspicious group of microcalcifications or new suspicious mass in either breast. Overall Assessment: Benign, BI-RAD 2 Management: Screening Mammogram of both breasts in 1 year. . Patient should continue monthly self-breast exams. A clinical breast exam by your physician is recommended on an annual basis. This exam should not preclude additional follow-up of suspicious palpable abnormalities. Note on Lynda scores and lifetime risk: 1. A Lynda score greater than 3% is considered moderate risk. If this is the case, consider specialist referral to assess eligibility for a risk reducing agent. 2. If overall lifetime risk for the development of breast cancer is 20% or higher, the patient may qualify for future screening with alternating mammogram and breast MRI. Electronically signed and approved by: Frances Eduardo M.D. Radiologist
== END | disposition home or self-care (01) ==
LOC: RADMAMWWP 13:06
PROVIDERS: ATTEND Family Medicine
DX: Z12.31 Encounter for screening mammogram for malignant neoplasm of breast (principal); Z78.0 Asymptomatic menopausal state; Z80.3 Family history of malignant neoplasm of breast
CPT/HCPCS: 77063; 77067

== ENCOUNTER → 2022-10-21 | Outpatient (CLI) | payer MEDICARE ==
--- NOTE | 2022-10-21 18:11 | US ---
EXAMINATION TYPE: US kidneys/renal and bladder DATE OF EXAM: 10/21/2022 COMPARISON: NONE CLINICAL INDICATION: Female, 77 years old with history of R94.4 ABNORMAL RESULTS OF KIDNEY FUNCTION S TUDIES; Abn function test EXAM MEASUREMENTS: Right Kidney: 10.2 x 4.7 x 4.6 cm Left Kidney: 10.6 x 4.0 x 4.3 cm Right Kidney: 1.4 x 1.0 x 1.2cm hypoechoic lesion seen on inferior pole, possibly debris-filled cyst that should be reassessed at follow-up. No hydronephrosis. Left Kidney: 2.1 x 1.3 x 1.0cm hypoechoic septated lesion, suspect a mildly complex cyst which should be reassessed at follow-up. Bladder: wnl Bilateral Jets seen: yes IMPRESSION: 1. No hydronephrosis. 2. Six-month follow-up to reassess bilateral renal cortical lesions. Suspect a debris filled cyst sherman suring 1.4 cm on the right and a septated cyst measuring 2.1 cm on the left.
== END | disposition home or self-care (01) ==
LOC: RADUSWWP 14:42
PROVIDERS: ATTEND Family Medicine
DX: R94.4 Abnormal results of kidney function studies (principal)
CPT/HCPCS: 76770

== ENCOUNTER 2024-02-06 08:50 | Emergency (ER) | payer MEDICARE ==
--- NOTE | 2024-02-06 08:59 | ED ---
Arrhythmia/Palpitations HPI - General Stated Complaint: palpitations Time Seen by Provider: 02/06/24 08:54 Source: RN notes reviewed, old records reviewed Mode of arrival: EMS Limitations: no limitations - History of Present Illness Initial Comments: This is a 78-year-old female presents today for evaluation of heart palpitations and elevated heart rate patient states she usually can feel this when it happens and has felt an irregular heartbeat at times in the past which she has diagnosed herself is atrial fibrillation. No formal evaluation, patient presents today with similar symptoms and complaints of palpitations and heart fluttering in her chest, feels like her heart is racing. MD Complaint: rapid heart beat, "heart racing", atrial fibrillation -: hour(s) Context: occurred during rest, AICD discharge Arrhythmia History: atrial fibrillation (Diagnosis) Associated Symptoms: chest pain, shortness of breath, anxiety Treatments Prior to Arrival: other (0) - Related Data Home Medications Medication Instructions Recorded Confirmed Zolpidem [Ambien] 5 mg PO HS PRN 05/21/15 08/24/21 Ibuprofen 200 mg PO BID PRN 06/29/18 08/24/21 Aspirin 650 mg PO DAILY PRN 05/19/20 08/24/21 Cholecalciferol [Vitamin D3 (25 100 mcg PO DAILY 08/24/21 08/24/21 Mcg = 1000 Iu)] Escitalopram [Lexapro] 10 mg PO DAILY 08/24/21 08/24/21 Multivitamins, Thera [Multivitamin 1 tab PO DAILY 08/24/21 08/24/21 (formulary)] Zinc 50 mg PO DAILY 08/24/21 08/24/21 carvediloL [Coreg] 25 mg PO DAILY 08/24/21 08/24/21 Allergies Allergy/AdvReac Type Severity Reaction Status Date / Time sood Allergy Anaphylaxis Verified 02/06/24 09:05 morphine Allergy Itching Verified 02/06/24 09:05 Review of Systems ROS Statement: Those systems with pertinent positive or pertinent negative responses have been documented in the HPI. ROS Other: All systems not noted in ROS Statement are negative. Past Medical History Past Medical History: Eye Disorder, Hypertension, Osteoarthritis (OA) Additional Past Medical History / Comment(s): rt cataract,OCCASIONAL VERTIGO., BACK PAIN. History of Any Multi-Drug Resistant Organisms: None Reported Past Surgical History: Hysterectomy, Joint Replacement, Orthopedic Surgery, Tonsillectomy Additional Past Surgical History / Comment(s): RIGHT ROTATOR CUFF REPAIR. Total Left hip,left cataract Past Anesthesia/Blood Transfusion Reactions: No Reported Reaction Smoking Status: Never smoker - Past Family History Mother Family Medical History: Coronary Artery Disease (CAD), Diabetes Mellitus, Hypertension, Myocardial Infarction ([place]) Additional Family Medical History / Comment(s): Mother of a [place] after her leg was amputated when she was 72 yrs old. Father Family Medical History: Cancer Additional Family Medical History / Comment(s): LUNG CA Brother(s) Family Medical History: Cancer Additional Family Medical History / Comment(s): MELANOMA General Exam General appearance: alert, in no apparent distress, anxious Head exam: Present: atraumatic, normocephalic, normal inspection Eye exam: Present: normal appearance, PERRL, EOMI. Absent: scleral icterus, conjunctival injection, periorbital swelling ENT exam: Present: normal exam, mucous membranes moist Neck exam: Present: normal inspection. Absent: tenderness, meningismus, lymphadenopathy Respiratory exam: Present: normal lung sounds bilaterally. Absent: respiratory distress, wheezes, rales, rhonchi, stridor Cardiovascular Exam: Present: tachycardia, irregular rhythm, normal heart sounds. Absent: systolic murmur, diastolic murmur, rubs, gallop, clicks GI/Abdominal exam: Present: soft, normal bowel sounds. Absent: distended, tenderness, guarding, rebound, rigid Extremities exam: Present: normal inspection, full ROM, normal capillary refill. Absent: tenderness, pedal edema, joint swelling, calf tenderness Back exam: Present: normal inspection Neurological exam: Present: alert, oriented X3, CN II-XII intact Psychiatric exam: Present: normal affect, normal mood Skin exam: Present: warm, dry, intact, normal color. Absent: rash Course Vital Signs 02/06/24 02/06/24 02/06/24 08:59 09:31 10:40 Temperature 98 F Pulse Rate 142 H 122 H 55 L Respiratory 18 18 18 Rate Blood Pressure 120/99 118/78 O2 Sat by Pulse 100 96 98 Oximetry 02/06/24 11:27 Temperature Pulse Rate 60 Respiratory 18 Rate Blood Pressure 118/72 O2 Sat by Pulse 97 Oximetry - Reevaluation(s) Reevaluation #1: 02/06/24 11:12 Medical records reviewed Reevaluation #2: 02/06/24 11:12 Patient symptoms improved Reevaluation #3: 02/06/24 11:12 Patient informed of results and questions answered Reevaluation #4: 02/06/24 11:12 Was pt. sent in by a medical professional or institution (LATOSHA Aguilar, GAS APPLIANCE SERVICER, urgent care, hospital, or half-way...) When possible be specific @ -no Did you speak to anyone other than the patient for history (EMS, parent, family, police, friend...)? What history was obtained from this source @ -no Did you review nursing and triage notes (agree or disagree)? Why? @ -agree Are old charts reviewed (outside hosp., previous admission, EMS record, old EKG, old radiological studies, urgent care reports/EKG's, half-way records)? Report findings @ -yes Differential Diagnosis (chest pain, altered mental status, abdominal pain women, abdominal pain men, vaginal bleeding, weakness, fever, dyspnea, syncope, headache, dizziness, GI bleed, back pain, seizure, CVA, palpatations, mental health, musculoskeletal)? @ -prior EKG interpreted by me (3pts min.). @ -yes X-rays interpreted by me (1pt min.). @ -no CT interpreted by me (1pt min.). @ -no U/S interpreted by me (1pt. min.). @ -no What testing was considered but not performed or refused? (CT, X-rays, U/S, labs)? Why? @ -none What meds were considered but not given or refused? Why? @ -none Did you discuss the management of the patient with other professionals (professionals i.e. LATOSHA Aguilar, GAS APPLIANCE SERVICER, lab, RT, psych nurse, social media marketing specialist, development technologist, teacher, fire management officer, registered nurse hh case manager)? Give summary @ -no Was smoking cessation discussed for >3mins.? @ -no Was critical care preformed (if so, how long)? @ -yes31 Were there social determinants of health that impacted care today? How? ([place] elessness, low income, unemployed, alcoholism, drug addiction, transportation, low edu. Level, literacy, decrease access to med. care, nursing home, rehab)? @ -none Was there de-escalation of care discussed even if they declined (Discuss DNR or withdrawal of care, Hospice)? DNR status @ -no What co-morbidities impacted this encounter? (DM, HTN, Smoking, COPD, CAD, Cancer, CVA, ARF, Chemo, Hep., AIDS, mental health diagnosis, sleep apnea, morbid obesity)? @ -none Was patient admitted / discharged? Hospital course, mention meds given and route, prescriptions, significant lab abnormalities, going to OR and other pertinent info. @ - 78 female to the ER for evaluation of severely elevated heart rate atrial fibrillation with RVR resolved here in the ER patient can be discharged home, she will not and does refuse to stay for further evaluation, despite knowing that she needs to be taking blood thinners as well as rate control medication Admitted but refuses the patient was discharged Undiagnosed new problem with uncertain prognosis? @ -no Drug Therapy requiring intensive monitoring for toxicity (Heparin, Nitro, Insulin, Cardizem)? @ -no Were any procedures done? @ -no Diagnosis/symptom? @ -Atrial fibrillation with RVR Acute, or Chronic, or Acute on Chronic? @ -Acute Uncomplicated (without systemic symptoms) or Complicated (systemic symptoms)? @ -Complicated Side effects of treatment? @ -no Exacerbation, Progression, or Severe Exacerbation? @ -exacerbation Poses a threat to life or bodily function? How? (Chest pain, [place], [place], pneumonia, PE, COPD, DKA, ARF, appy, cholecystitis, CVA, Diverticulitis, Homicidal, Suicidal, threat to staff... and all critical care pts) @ -yes significant arrhythmia Reevaluation #5: Differential Palpitations Ventricular arrhythmias, atrial arrhythmias, myocardial infarction, anemia, thyrotoxicosis, electrolyte imbalance, hypokalemia, pulmonary embolism, pulmonary disease, drugs, alcohol, anxiety, stress.... This is not meant to be an all-inclusive list. EKG Findings - EKG Comments: EKG Findings:: EKG is A-fib with RVR 133 QRS 90 QTc 371 - EKG Results: EKG: interpreted by ANGÉLICA Medical Decision Making - Medical Decision Making 78 female to the ER for evaluation of severely elevated heart rate atrial fibrillation with RVR resolved here in the ER patient can be discharged home, she will not and does refuse to stay for further evaluation, despite knowing that she needs to be taking blood thinners as well as rate control medication - Lab Data Result diagrams: 02/06/24 09:13 02/06/24 09:13 Lab Results 02/06/24 02/06/24 02/06/24 Range/Units 09:13 09:13 09:13 WBC 4.8 (3.8-10.6) k/uL RBC 4.35 (3.80-5.40) m/uL Hgb 12.7 (11.4-16.0) gm/dL Hct 39.0 (34.0-46.0) % MCV 89.7 (80.0-100.0) fL MCH 29.1 (25.0-35.0) pg MCHC 32.4 (31.0-37.0) g/dL RDW 14.1 (11.5-15.5) % Plt Count 202 (150-450) k/uL MPV 7.0 Neutrophils % 50 % Lymphocytes % 35 % Monocytes % 7 % Eosinophils % 5 % Basophils % 1 % Neutrophils # 2.4 (1.3-7.7) k/uL Lymphocytes # 1.7 (1.0-4.8) k/uL Monocytes # 0.3 (0-1.0) k/uL Eosinophils # 0.2 (0-0.7) k/uL Basophils # 0.1 (0-0.2) k/uL PT 10.8 (10.0-12.5) sec INR 1.0 (<1.2) APTT 21.7 L (22.0-30.0) sec Sodium 140 (137-145) mmol/L Potassium 3.7 (3.5-5.1) mmol/L Chloride 110 H (98-107) mmol/L Carbon Dioxide 24 (22-30) mmol/L Anion Gap 6 mmol/L BUN 19 H (7-17) mg/dL Creatinine 0.95 (0.52-1.04) mg/dL Est GFR (CKD-EPI)AfAm 66 (>60 ml/min/1.73 sqM) Est GFR (CKD-EPI)NonAf 58 (>60 ml/min/1.73 sqM) Glucose 110 H (74-99) mg/dL Calcium 9.4 (8.4-10.2) mg/dL Phosphorus 3.5 (2.5-4.5) mg/dL Magnesium 1.7 (1.6-2.3) mg/dL Total Bilirubin 1.0 (0.2-1.3) mg/dL AST 24 (14-36) U/L ALT 26 (4-34) U/L Alkaline Phosphatase 50 (38-126) U/L Troponin I (0.000-0.034) ng/mL NT-Pro-B Natriuret Pep 73 pg/mL Total Protein 6.3 (6.3-8.2) g/dL Albumin 4.0 (3.5-5.0) g/dL TSH 2.420 (0.465-4.680) mIU/L Urine Color Urine Appearance (Clear) Urine pH (5.0-8.0) Ur Specific [place] (1.001-1.035) Urine Protein (Negative) Urine Glucose (UA) (Negative) Urine Ketones (Negative) Urine Blood (Negative) Urine Nitrite (Negative) Urine Bilirubin (Negative) Urine Urobilinogen (<2.0) mg/dL Ur Leukocyte Esterase (Negative) Urine WBC (0-5) /hpf Ur Squamous Epith Cells (0-4) /hpf Urine Bacteria (None) /hpf Urine Mucus (None) /hpf 02/06/24 02/06/24 Range/Units 09:13 09:31 WBC (3.8-10.6) k/uL RBC (3.80-5.40) m/uL Hgb (11.4-16.0) gm/dL Hct (34.0-46.0) % MCV (80.0-100.0) fL MCH (25.0-35.0) pg MCHC (31.0-37.0) g/dL RDW (11.5-15.5) % Plt Count (150-450) k/uL MPV Neutrophils % % Lymphocytes % % Monocytes % % Eosinophils % % Basophils % % Neutrophils # (1.3-7.7) k/uL Lymphocytes # (1.0-4.8) k/uL Monocytes # (0-1.0) k/uL Eosinophils # (0-0.7) k/uL Basophils # (0-0.2) k/uL PT (10.0-12.5) sec INR (<1.2) APTT (22.0-30.0) sec Sodium (137-145) mmol/L Potassium (3.5-5.1) mmol/L Chloride (98-107) mmol/L Carbon Dioxide (22-30) mmol/L Anion Gap mmol/L BUN (7-17) mg/dL Creatinine (0.52-1.04) mg/dL Est GFR (CKD-EPI)AfAm (>60 ml/min/1.73 sqM) Est GFR (CKD-EPI)NonAf (>60 ml/min/1.73 sqM) Glucose (74-99) mg/dL Calcium (8.4-10.2) mg/dL Phosphorus (2.5-4.5) mg/dL Magnesium (1.6-2.3) mg/dL Total Bilirubin (0.2-1.3) mg/dL AST (14-36) U/L ALT (4-34) U/L Alkaline Phosphatase (38-126) U/L Troponin I <0.012 (0.000-0.034) ng/mL NT-Pro-B Natriuret Pep pg/mL Total Protein (6.3-8.2) g/dL Albumin (3.5-5.0) g/dL TSH (0.465-4.680) mIU/L Urine Color Colorless Urine Appearance Clear (Clear) Urine pH 5.0 (5.0-8.0) Ur Specific [place] 1.004 (1.001-1.035) Urine Protein Negative (Negative) Urine Glucose (UA) Negative (Negative) Urine Ketones Negative (Negative) Urine Blood Negative (Negative) Urine Nitrite Negative (Negative) Urine Bilirubin Negative (Negative) Urine Urobilinogen <2.0 (<2.0) mg/dL Ur Leukocyte Esterase Large H (Negative) Urine WBC 5 (0-5) /hpf Ur Squamous Epith Cells 2 (0-4) /hpf Urine Bacteria Rare H (None) /hpf Urine Mucus Rare H (None) /hpf - EKG Data -: EKG Interpreted by Me (Repeat EKG is sinus 60 [place] 203 QRS 88 QTc 393) Critical Care Time Critical Care Time: Yes Total Critical Care Time: 31 Disposition Clinical Impression: Palpitations, Atrial fibrillation, Atrial fibrillation with rapid ventricular response Disposition: HOME SELF-CARE Condition: Fair Instructions (If sedation given, give patient instructions): A-fib (Atrial Fibrillation) (ED) Is patient prescribed a controlled substance at d/c from ED?: No Referrals: Mark Martin DO [Primary Care Provider] - 1-2 days [facility] [Provider Group] - 1-2 days Time of Disposition: 11:15
[2024-02-06 09:05] VITALS: RESP 18; TEMP 98
[2024-02-06] MEDS: SODIUM CHLORIDE 0.9% 1,000 ML IV STA (09:20)
[2024-02-06] MEDS: METOPROLOL TARTRATE 5 MG/5 ML VIAL IVP STA (09:21)
[2024-02-06 09:27] LABS: Basophils # (A) 0.1 k/uL (0-0.2); Basophils % (A) 1 %; Eosinophils # (A) 0.2 k/uL (0-0.7); Eosinophils % (A) 5 %; HGB 12.7 gm/dL (11.4-16.0); Lymphocytes # (A) 1.7 k/uL (1.0-4.8); Lymphocytes % (A) 35 %; MCH 29.1 pg (25.0-35.0); MCHC 32.4 g/dL (31.0-37.0); MCV 89.7 fL (80.0-100.0); Monocytes # (A) 0.3 k/uL (0-1.0); Monocytes % (A) 7 %; Neutrophils # (A) 2.4 k/uL (1.3-7.7); Neutrophils % (A) 50 %; Platelet Count 202 k/uL (150-450); RBC 4.35 m/uL (3.80-5.40); RDW 14.1 % (11.5-15.5); WBC 4.8 k/uL (3.8-10.6)
[2024-02-06] MEDS: DILTIAZEM DRIP BOLUS FROM BAG 1 MG SOLN IV ONE (09:29)
[2024-02-06] MEDS: DILTIAZEM 125 MG in SODIUM CHLORIDE 0.9% 100 ML IV SCH (09:30)
[2024-02-06 09:41] LABS: Prothrombin Time 10.8 sec (10.0-12.5)
[2024-02-06 09:54] LABS: ALT 26 U/L (4-34); AST 24 U/L (14-36); African American GFR (CKD) 66 (>60 ml/min/1.73 sqM); Alkaline Phosphatase 50 U/L (38-126); Anion Gap 6 mmol/L; Blood Urea Nitrogen 19 mg/dL (7-17); Calcium 9.4 mg/dL (8.4-10.2); Carbon Dioxide 24 mmol/L (22-30); Chloride 110 mmol/L (98-107); Glucose 110 mg/dL (74-99); Magnesium 1.7 mg/dL (1.6-2.3); Non-African American GFR(CKD) 58 (>60 ml/min/1.73 sqM); Phosphorus 3.5 mg/dL (2.5-4.5); Potassium 3.7 mmol/L (3.5-5.1); Sodium 140 mmol/L (137-145); Total Protein 6.3 g/dL (6.3-8.2)
[2024-02-06 09:58] LABS: NT-Pro-B-Type Natriuretic Pept 73 pg/mL
[2024-02-06 10:03] LABS: Appearance,Urine Clear (Clear); Bacteria,Urine Rare /hpf; Bilirubin,Urine Negative (Negative); Blood,Urine Negative (Negative); Color,Urine Colorless; Glucose,Urine (UA) Negative (Negative); Ketones,Urine Negative (Negative); Leukocyte Esterase,Urine Large (Negative); Mucus,Urine Rare /hpf; Nitrite,Urine Negative (Negative); Protein,Urine Negative (Negative); Specific Gravity,Urine 1.004 (1.001-1.035); Squamous Epithelial Cell,Urine 2 /hpf (0-4); Urobilinogen,Urine <2.0 mg/dL (<2.0); WBC,Urine 5 /hpf (0-5)
[2024-02-06 10:09] LABS: Partial Thromboplastin Time 21.7 sec (22.0-30.0)
[2024-02-06 11:29] VITALS: BP 118/72; PULSE 60
== END 2024-02-06 11:29 | disposition home or self-care (01) ==
LOC: EC 08:50
CPT/HCPCS: 36415; 80053; 81001; 83735; 83880; 84100; 84443; 84484; 85025; 85610; 85730; 93005; 96365; 96375; 99291